=== PATIENT | female | born 1945 ===

== ENCOUNTER 2018-07-15 12:29 | Outpatient (CLI) | payer OTHER | END 2018-07-15 12:31 | disposition home or self-care (01) | LOC: SONOGRAMA 12:29 | DX: R22.2 Localized swelling, mass and lump, trunk (principal) ==

== ENCOUNTER 2019-09-02 10:27 | Outpatient (CLI) | payer OTHER | END 2019-09-02 10:31 | disposition home or self-care (01) | LOC: MAMO-SONO 10:27 | DX: C50.911 Malignant neoplasm of unspecified site of right female breast (principal); N63.10 Unspecified lump in the right breast, unspecified quadrant; N63.20 Unspecified lump in the left breast, unspecified quadrant; R92.0 Mammographic microcalcification found on diagnostic imaging of breast ==

== ENCOUNTER 2021-03-08 07:21 | Outpatient (CLI) | payer OTHER | END 2021-03-08 07:37 | disposition home or self-care (01) | LOC: MAMO-SONO 07:21 | PROVIDERS: ATTEND Internal Medicine Hematology & Oncology | DX: C50.911 Malignant neoplasm of unspecified site of right female breast (principal); C50.912 Malignant neoplasm of unspecified site of left female breast; N63.20 Unspecified lump in the left breast, unspecified quadrant; R10.9 Unspecified abdominal pain; R92.8 Other abnormal and inconclusive findings on diagnostic imaging of breast ==

== ENCOUNTER 2022-08-11 13:43 | Outpatient (CLI) | payer OTHER | END 2022-08-11 13:55 | disposition home or self-care (01) | LOC: MAMO-SONO 13:43 | PROVIDERS: ATTEND Internal Medicine Hematology & Oncology | DX: N63.0 Unspecified lump in unspecified breast (principal); C50.911 Malignant neoplasm of unspecified site of right female breast ==

== ENCOUNTER 2023-01-27 07:41 | Emergency (ER) | payer OTHER ==
[~2023-01-27] VITALS: Ht 160 cm; Wt 56.2 kg
[2023-01-27] MEDS ORDERED: TENORMIN25 MG (07:51)
[2023-01-27] MEDS ORDERED: GLIPIZIDE5 MG (07:51)
[2023-01-27] MEDS ORDERED: SERTRALINE HCL25 MG (07:52)
[2023-01-27] MEDS ORDERED: VITAMIN D310 MC5 (07:52)
== END 2023-01-27 16:55 | disposition designated cancer center or children's hospital (05) ==
LOC: ER 07:41
DX: S72.391A Other fracture of shaft of right femur, initial encounter for closed fracture (principal); W18.39XA Other fall on same level, initial encounter; Y93.89 Activity, other specified; Y92.89 Other specified places as the place of occurrence of the external cause; Z91.013 Allergy to seafood; E11.65 Type 2 diabetes mellitus with hyperglycemia; Z79.84 Long term (current) use of oral hypoglycemic drugs; I10 Essential (primary) hypertension